=== PATIENT | male | born 1975 | race Caucasian/White ===

== ENCOUNTER 2018-09-17 01:39 | Emergency (ER) | payer SELFPAY ==
[2018-09-17 02:35] LABS: URINE BLOOD (Dip) POC 1+ (NEGATIVE); URINE GLUCOSE (Dip) POC Negative (NEGATIVE); URINE KETONES (Dip) POC Negative (NEGATIVE); URINE LEUKOCYTE EST (Dip) POC 3+ (NEGATIVE); URINE NITRITE (Dip) POC Negative (NEGATIVE); URINE TOTAL PROTEIN POC 1+ (NEGATIVE)
[2018-09-17] MEDS: KETOROLAC 60 MG INJ IM ×2 (03:01→03:11)
[2018-09-17] MEDS: CEFTRIAXONE 1 GM INJ IM (03:01)
== END 2018-09-17 03:16 | disposition home or self-care (01) ==
LOC: FTE 01:39
DX: N39.0 Urinary tract infection, site not specified (principal); F17.210 Nicotine dependence, cigarettes, uncomplicated
CPT/HCPCS: 81003; 96372; 99284-25